=== PATIENT | male | born 1995 | race Caucasian/White ===

== ENCOUNTER 2024-01-27 12:50 | Emergency (ER) | payer OTHER, SELFPAY ==
[2024-01-27 13:08] VITALS: BP 128/76; PULSE 65; RESP 16; TEMP 36.6; O2SAT 98
--- NOTE | 2024-01-27 13:25 | ED.EXTPRO ---
HPI - Extremity Problem General Chief complaint: Extremity Problem,Nontraumatic Stated complaint: bilateral foot pain and open sores Time Seen by Provider: 01/27/24 13:25 Source: patient Mode of arrival: ambulatory Limitations: no limitations History of Present Illness HPI Narrative: 28-year-old paraplegic male presented and wheelchair for complaint of wounds to the right foot 1st and 2nd toes for a few months. He states he wears steel-toed boots for 60 hours a week. No treatment prior to arrival. Denies swelling to the toes, drainage, warmth or fever. Related Data Home Medications Medication Instructions Recorded Confirmed baclofen 10 mg tablet 10 mg PO USEASDIRECTD 01/27/24 01/27/24 gabapentin 800 mg tablet 800 mg PO USEASDIRECTD 01/27/24 01/27/24 lamotrigine 25 mg tablet 25 mg PO BID 01/27/24 01/27/24 Allergies Allergy/AdvReac Type Severity Reaction Status Date / Time cephalexin [From Keflex] Allergy Unknown Verified 01/27/24 13:24 Prolic Allergy Unknown Uncoded 01/27/24 13:24 Review of Systems Review of Systems: CONSTITUTIONAL: Denies body aches, fever, chills, or sweats. EYES: Denies visual changes, redness, or discharge. CARDIOVASCULAR: Denies chest pain, palpitations, or edema. RESPIRATORY: Denies cough or dyspnea. SKIN: per hpi MUSCULOSKELETAL: Denies back pain, joint pain, or myalgia. NEUROLOGIC: Denies headache, numbness, tingling, or weakness. [facility] Past Medical History Medical History (Updated 01/27/24 @ 13:47 by Kerline Shah, BILL) Paraplegia Comments At time of signature, I have reviewed and agree with nursing past medical, surgical, social and family history unless otherwise noted. Please see nursing chart for further information. There is no relevant family history pertinent to the presenting complaint Exam Narrative: GENERAL: Well-appearing EYES: conjunctivae clear, and EOMI. ENT: Mucous membranes moist. Oropharynx without edema, erythema or lesions. CHEST: Clear to auscultation. HEART: Regular rate and rhythm. SKIN: Warm, dry. Right foot 1st and 2nd toes with corns to dorsal aspects over bony prominences, appear scabbed with mild surrounding erythema. Blanchable. No swelling, open wounds or active drainage. NEURO: Alert and oriented x3. Course Course Emergency Course: Patient is aware of diagnosis, understands and agrees to treatment plan. Anticipatory guidance given. Patient agrees to follow-up as directed and is aware of reasons to seek care at the emergency department. Portions of this record may have been created with voice recognition software Level of Care: Express Care Visit Vital Signs Vital signs: Vital Signs Temperature 97.9 F 01/27/24 13:08 Pulse Rate 65 01/27/24 13:08 Respiratory Rate 16 01/27/24 13:08 Blood Pressure 128/76 01/27/24 13:08 Pulse Oximetry 98 01/27/24 13:08 Temperature 97.9 F 01/27/24 13:08 Pulse Rate 65 01/27/24 13:08 Respiratory Rate 16 01/27/24 13:08 Blood Pressure 128/76 01/27/24 13:08 Pulse Oximetry 98 01/27/24 13:08 Reviewed MDM - Extremity (Nontraumatic) MDM Narrative Medical decision making narrative: Discussed physical exam findings. Advised supportive measures and signs/symptoms to go to the ER. Pt is appropriate for outpt treatment and f/u. Differential Diagnosis Differential diagnosis: Likely gout, cellulitis and other (corn, pressure ulcer) Discharge Plan Discharge Clinical Impression: Callus of toe Patient Disposition: Home, Self-Care Condition: Stable Instructions: Paige Mathis (ED) Additional Instructions: [place] treatment recommendations: Wear shoes that fit well:?Shoes with a wide and deep toe box can help relieve pressure on corns.? Use medicated corn pads:?You can buy these at most drug stores.? Avoid shaving the area, leave it to a specialist if you have decreased sensation in the feet Use protective padding:?While your foot heals, you
== END 2024-01-27 13:46 | disposition home or self-care (01) ==
PROVIDERS: Emergency Provider Nurse Practitioner Family
DX: L84 Corns and callosities (principal); G82.20 Paraplegia, unspecified
CPT/HCPCS: 99203; G0463